=== PATIENT | female | born 1980 | race Caucasian/White ===

== ENCOUNTER 2022-03-02 08:54 | Outpatient (CLI) | payer OTHER, SELFPAY ==
[2022-03-02 13:47] LABS: Albumin* 4.5 g/dL (3.3-5.0)
[2022-03-02 13:48] LABS: Chloride* 103 mmol/L (96-114); Potassium* 4.4 mmol/L (3.6-5.1); Sodium* 138 mmol/L (135-149)
[2022-03-02 13:50] LABS: Bilirubin Total* 0.4 mg/dL (0.1-1.5); Carbon Dioxide* 29 mmol/L (20-32); Cholesterol* 188 mg/dL (90-199); Creatinine* 0.6 mg/dL (0.5-1.5); Estimated Glomerular Filt Rate 114 ml/min
[2022-03-02 13:51] LABS: Alanine Aminotransferase* 35 U/L (4-35); Alkaline Phosphatase* 58 U/L (40-150); Aspartate Amino Transferase* 29 U/L (12-35); Blood Urea Nitrogen* 15 mg/dL (5-24); Calcium* 9.3 mg/dL (8.4-10.6); Glucose* 106 mg/dL (60-115); HDL Cholesterol* 59 mg/dL (>=50); LDL Cholesterol Calculated 97 mg/dL (<100); Total Protein* 7.2 g/dL (6.0-8.3); Triglycerides* 161 mg/dL (40-149)
== END 2022-03-02 08:55 | disposition home or self-care (01) ==
PROVIDERS: PCP Physician Assistant Medical; Visit Provider Physician Assistant Medical
DX: Z00.00 Encounter for general adult medical examination without abnormal findings (principal); F41.9 Anxiety disorder, unspecified; Z13.6 Encounter for screening for cardiovascular disorders; Z13.29 Encounter for screening for other suspected endocrine disorder; Z11.3 Encounter for screening for infections with a predominantly sexual mode of transmission
CPT/HCPCS: 80053; 80061; 84443; 87624; 88175

== ENCOUNTER 2023-11-10 08:51 | Outpatient (CLI) | payer OTHER, SELFPAY ==
--- OUTSIDE RECORDS SUMMARY | 2023-11-11 06:09 | XMS_ITS | Clinical Summary ---
Author Name Unknown Organization [facility] Address [address], [place] [address] Care Team Providers Care Evaporative Cooler Installer Name Role Phone Rolando Pike MD Primary Care Provider [phone] Source Comments You are receiving this document as you are listed as the primary care provider,follow-up provider, or the patient has been referred to you for consultation.This is in compliance with the Medicare and[facility] E[facility] Incentive [facility],which states Providers who transition their patient to another setting of careor provider of care or refers their patient to another provider of care shouldprovide summary care record for each transition of care or referral. [facility] Allergies Active Allergy Reactions Criticality Noted Date Comments Levofloxacin Anxiety High 09/22/2012 Medications Medication Sig Dispensed Refills Start Date End Date Status Apnugvbr-Zne-Aq-FA ( VITAMINS OR) Reported on 07/24/2016 Active sertraline (ZOLOFT) 50 MG tablet Take 50 mg by mouth daily. Active Vit-Fe Fumarate-FA ( VITAMIN OR) Active Active Problems Problem Noted Date Diagnosed Date Ingrowing nail 06/26/2011 Allergic rhinitis 03/09/2005 Overview: LW Onset: [id number] ; Rhinitis Allergic NOS Migraine 12/23/2002 Overview: Migraine Without Aura Resolved Problems Problem Noted Date Diagnosed Date Resolved Date Muscle tension headache 04/28/201304/18 Immunizations Name Administration Dates Next Due TDAP (ADACEL) 07/10/2008 Td 09/04/2002 Tdap 07/10/2008 Social History Tobacco Use Types Packs/Day Years Used Date Smoking Tobacco: Never Smokeless Tobacco: Never Alcohol Use Standard Drinks/Week Comments No 0 (1 standard drink = 0.6 oz pur e alcohol) Sex and Gender Information Value Date Recorded Sex Assigned at Not on file Gender Identity Not on file Sexual Orientation Not on file Last Filed Vital Signs Vital Sign Reading Time Taken Comments Blood Pressure 101/73 06/18/2017 6:48 PM IT ARCHITECTURE ANALYST Pulse 81 06/18/2017 6:48 PM IT ARCHITECTURE ANALYST Temperature 37 ??C (98.6 ??F) 06/18/2017 6:48 PM IT ARCHITECTURE ANALYST Respiratory Rate 18 06/18/2017 6:48 PM IT ARCHITECTURE ANALYST Oxygen Saturation 97% 06/18/2017 6:48 PM IT ARCHITECTURE ANALYST Inhaled Oxygen Concentration - - Weight 61.2 kg (135 lb) 06/18/2017 6:48 PM IT ARCHITECTURE ANALYST Height 162.6 cm (5' 4) 06/18/2017 6:48 PM IT ARCHITECTURE ANALYST Body Mass Index 23.17 06/18/2017 6:48 PM IT ARCHITECTURE ANALYST Plan of Treatment Health Maintenance Due Date Last Done Comments Hep C Screening (Preventive Services) 1979 HIV Screening (Preventive Services) 1995 Adult Preventive Visit 1997 HepB (1) 1998 Cervical Cancer Screening Due 07/11/2008 07/10/2008, 12/17/2006, 03/09/2005, Additional history exists DTaP/Tdap/Td (3 - Tdap) 07/10/2018 07/10/20, 07/10/2008, 09/04/2002 COVID-19 Vaccine (2022-24 season) 2023 Influenza (#1) 2023 Zoster/Shingles (1 of 2) 2029 HPV Vaccine Aged Out No longer eligi ble based on patient's age to complete this topic HepA Aged Out No longer eligi ble based on patient's age to complete this topic Hib Aged Out No longer eligi ble based on patient's age to complete this topic IPV (Polio) Aged Out No longer eligi ble based on patient's age to complete this topic MCV4 Aged Out No longer eligi ble based on patient's age to complete this topic Pneumococcal Aged Out No longer eligi ble based on patient's age to complete this topic Procedures Procedure Name Priority Date/Time Associated Diagnosis Comments ANATOMICAL PATH LIQUID BASED Routine 07/10/2008 5:44 AM IT ARCHITECTURE ANALYST from Last 3 Months or Most Recently Relevant to Health Maintenance Results * Pap Smear (07/10/2008 5:44 AM IT ARCHITECTURE ANALYST) PAP Smear Liquid Based SEE TEXT No normal range HP CONVERSION Comment: Patient: MANISHA FRAZIER ? CERVICAL CYTOLOGY REPORT Pathology # ??[id number] ?Date Obtained: ? Date Received: CYTOLOGIC IMPRESSION: Negative for intraepithelial lesion or malignancy. Verified 07/17/08 by: ??KGM ?(electronic signature) ? ADDITIONAL DATA LMP: CLINICAL HIST LIQUID BASED PAP CERVICAL SPECIMEN ADEQUACY: ?? Satisfactory. ENDOCERVICAL CELLS: ??Present. 07/10/2008 5:44 AM IT ARCHITECTURE ANALYST Lucy Foote PA-C LAB_1 HP CONVERSION from Last 3 Months or Most Recently Relevant to Health Maintenance Care Teams Evaporative Cooler Installer Relationship Specialty [place] [address] [place] [address] PCP - General Internal Medicine 04/28/13
--- OUTSIDE RECORDS SUMMARY | 2023-11-11 06:09 | XMS_ITS | Referral Summary ---
Author Name Unknown Organization [facility] Address [address] [place] [address]. [place] [address] Care Team Providers Care Hotel Room Attendant Name Role Phone Consultants, Gian Peoplesoft Analyst Primary Care Provi nick Allergies No known active allergies Medications Medication Sig Dispensed Refills Start Date End Date Status sertraline (ZOLOFT) 50 MG tablet Take 50 mg by mouth Active Social History Tobacco Use Types Packs/Day Years Used Date Smoking Tobacco: Never Assessed Adolescent Education Answer Date Record ed Getting School Help Needed Not on file 04/25 Sex and Gender Information Value Date Recorded Sex Assigned at Not on file Gender Identity Not on file Sexual Orientation Not on file Plan of Treatment Not on file Procedures Procedure Name Priority Date/Time Associated Diagnosis Comments MA SCREENING DIGITAL BILATERAL Routine 07/15/2023 2:02 PM HYDROELECTRIC PLANT OPERATOR Visit for screening mammogram from Last 3 Months or Most Recently Relevant to Health Maintenance Results * MA Screening Digital Bilateral (07/15/2023 2:02 PM HYDROELECTRIC PLANT OPERATOR) Anatomical Region Laterality Modality Breast Bilateral Mammography Impressions 07/16/2023 8:09 AM HYDROELECTRIC PLANT OPERATOR IMPRESSION: ACR BI-RADS Category 1: Negative RECOMMENDED FOLLOW-UP: Annual routine screening mammogram The results and recommendations of this examination will be communicated to the patient. Jatin Degroot MD Narrative 07/16/2023 8:09 AM HYDROELECTRIC PLANT OPERATOR BILATERAL FULL FIELD DIGITAL SCREENING MAMMOGRAM Performed on: 07/15/23 Compared to: 02/05/2022 and 06/07/2020 Technique: This study was evaluated with the assistance of Computer-Aided Detection. Findings: The breasts are heterogeneously dense, which may obscure small masses. ??There is no radiographic evidence of malignancy. Nancy Nichols PA-C IMG MAMMOGRAPHY ORDERABLES from Last 3 Months or Most Recently Relevant to Health Maintenance Care Teams Hotel Room Attendant Relationship Specialty Start Date End Date ConsultantsGian Peoplesoft Analyst [address] [place] [address], [address] [place] [address] PCP - General 06/06/20
--- OUTSIDE RECORDS SUMMARY | 2023-11-11 06:09 | XMS_ITS | Clinical Summary ---
Author Name Unknown Organization [facility] Address [address] [place] [address]. [place] [address] Care Team Providers Care Passenger Service Representative Name Role Phone Consultants, Gian Supervisor Erection Shop Primary Care Provi nick Allergies No known active allergies Medications Medication Sig Dispensed Refills Start Date End Date Status sertraline (ZOLOFT) 50 MG tablet Take 50 mg by mouth Active Family History Medical History Relation Comments Colon Cancer Maternal Grandfather Breast Cancer Maternal Grandmother Relation Status Comments Maternal Grandfather Maternal Grandmother Social History Tobacco Use Types Packs/Day Years Used Date Smoking Tobacco: Never Assessed Adolescent Education Answer Date Record ed Getting School Help Needed Not on file 04/25 Sex and Gender Information Value Date Recorded Sex Assigned at Not on file Gender Identity Not on file Sexual Orientation Not on file Plan of Treatment Health Maintenance Due Date Last Done Comments ADVANCE CARE PLANNING 1979 ANNUAL REVIEW OF HM ORDERS 1979 GLUCOSE 1979 HIV SCREENING 1994 HEPATITIS C SCREENING 1997 HEPATITIS B IMMUNIZATION (1 of 3 - 19+ 3-dose series) 1998 PAP 01/02/2000 LIPID 2019 YEARLY PREVENTIVE VISIT 03/21/2021 03/21/2020 COVID-19 Vaccine (24 season) 2023 12/11/2020, 11/13/2020 PHQ-2 (once per calendar year) 2023 MAMMO SCREENING 07/15/2025 07/15/2023, 01/17, 01/22/2021, Additional history exists DTAP/TDAP/TD IMMUNIZATION (5 - Td or Tdap) 03/02/2032 03/02/2022, 02/17/2011, 07/10/2008, Additional history exists INFLUENZA VACCINE Completed 04/15/2023, , 04/04/2020, Additional history exists HPV IMMUNIZATION Aged Out No longer e ligible based on patient's age to complete this topic IPV IMMUNIZATION Aged Out No longer e ligible based on patient's age to complete this topic MENINGITIS IMMUNIZATION Aged Out No l onger eligible based on patient's age to complete this topic Pneumococcal Vaccine: Pediatrics (0 to 5 Years) and At-Risk Patients (6 to 64 Years) Aged Out No longer eligible based on patient's age to complete this topic RSV MONOCLONAL ANTIBODY Aged Out No l onger eligible based on patient's age to complete this topic Procedures Procedure Name Priority Date/Time Associated Diagnosis Comments MA SCREENING DIGITAL BILATERAL Routine 07/15/2023 2:02 PM CASHIER AND WAITER/WAITRESS Visit for screening mammogram from Last 3 Months or Most Recently Relevant to Health Maintenance Results * MA Screening Digital Bilateral (07/15/2023 2:02 PM CASHIER AND WAITER/WAITRESS) Anatomical Region Laterality Modality Breast Bilateral Mammography Impressions 07/16/2023 8:09 AM CASHIER AND WAITER/WAITRESS IMPRESSION: ACR BI-RADS Category 1: Negative RECOMMENDED FOLLOW-UP: Annual routine screening mammogram The results and recommendations of this examination will be communicated to the patient. Jatin Degroot MD Narrative 07/16/2023 8:09 AM CASHIER AND WAITER/WAITRESS BILATERAL FULL FIELD DIGITAL SCREENING MAMMOGRAM Performed on: 07/15/23 Compared to: 02/05/2022 and 06/07/2020 Technique: This study was evaluated with the assistance of Computer-Aided Detection. Findings: The breasts are heterogeneously dense, which may obscure small masses. ??There is no radiographic evidence of malignancy. Nancy Nichols PA-C IMHao MAMMOGRAPHY ORDERABLES from Last 3 Months or Most Recently Relevant to Health Maintenance Care Teams Passenger Service Representative Relationship Specialty Start Date End Date ConsultantsGian Supervisor Erection Shop [facility], [address] [place] [address] PCP - General 06/06/20
== END 2023-11-10 08:52 | disposition home or self-care (01) ==
LOC: NFLDREF 11-11 06:07
PROVIDERS: PCP Physician Assistant Medical; Referring Provider Physician Assistant Medical; Visit Provider Physician Assistant Medical
DX: Z13.220 Encounter for screening for lipoid disorders (principal); Z13.228 Encounter for screening for other metabolic disorders; Z13.29 Encounter for screening for other suspected endocrine disorder; Z11.9 Encounter for screening for infectious and parasitic diseases, unspecified
CPT/HCPCS: 80053; 80061; 84443; 86703; 86803

== ENCOUNTER 2023-11-15 08:49 | Outpatient (RCR) | payer OTHER, SELFPAY ==
--- NOTE | 2023-11-15 10:43 | PT.OPE ---
PT [facility] Outpatient Eval PT [facility] Outpatient Eval Start: 11/15/23 10:39 Freq: Status: Active Protocol: Document 11/15/23 10:39 YOVANNYJuan Diego (Rec: 11/15/23 10:41 YOVANNYJuan Diego [id number]) E-signed By Aj Doherty DPT, MS Physical Therapy Outpatient Evaluation Insurance Information Insurance Name Other; See Comments Insurance Information/Comments [facility] Medical Diagnosis Radiculopathy, site unspecified Treating Diagnosis B LS pain with R-sided LS radicular sxs, decreased B LS and LE flexibility, and B LE and core weakness Subjective Subjective Pt is a 43 y.o female who presents to PT with c/o acute onset of R-sided LS radicular sxs of insidious onset ~2 weeks ago. Believes a deadlifting workout or helping move a refrigerator may have causes sxs with no specific injury. Initially experienced R-sided LS and glute soreness, but sxs have primarily been numbness and tingling along her lateral R LE extending down to her 5th toe. Sx intensity and frequency has improved significantly with prednisone use with stiffness and mild tingling upon waking being primary complaint. Does not like taking pills and plans on weaning herself off prednisone and will reach out to her MD. Performs LE strengthening exercises 2-4x per week and stretches her piriformis regularly. Describes high levels of anxiety with chronic neck and upper back stiffness and pain. Hopes to learn how to resolve sxs and prevent future recurrences. Denies other significant PMH. AGGR factors: extended standing and walking , carrying heavy objects. ALLEV factors: heat, rest, prednisone, stretching. 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 Preferred Name Manisha Precautions Therapy Limitations/Systems Review Not Limited Objective Functional Test Performed & Score Modified OSWESTRY: 28% Assessment Assessment/Impression Pt displays LS flex directional preference of movement with signs and symptoms consistent with R- sided LS radiculopathy. R piriforomis tightness combined with R LE weakness appears to have contributed to sxs. Instructed pt in proper lifting mechanics and stressed the importance of avoiding lifting heavy objects as she continues to recover. Good response to combination of stretching, and supine and standing strengthening exercises with decreased tightness and radicular sxs following today?s session. She will benefit greatly from continued skilled therapy to address these limitations. Primary Functional Limitations Extended standing and walking, carrying heavy objects Plan of Care Rehabilitation Potential Excellent Physical Therapy Goals Short-term goals to be completed in 4 weeks: 1. Pt will report >50% improvement in radicular sxs upon waking for >3 consecutive days. 2. Pt will report improved tolerance to standing and walking >5 min with no elevation in R-sided LS radicular sxs to perform work duties. Long-term goals to be completed in 10 weeks: 1. Pt will be independent and compliant with HEP 2. Pt will display improved R hip flex, ABD and ext, and abdominal strength of >/= 4+/5 to improve tolerance to rotor blade installer and lifting activities. 3. Pt will be able to walk for >14 minutes with no elevation in R-sided radciular sxs or LS pain to improve cardiovascular health. 4. Pt will report >50% improvement in modified OSWESTRY to increase tolerance to functional daily activities. Coordination/Communication With Referral Source Treatment Plan/Direct Interventions Joint Mobilization,Manual Therapy,Therapeutic Exercises, Traction (Mechanical) Frequency/Duration 1x per week for at least 6-10 visits, decreasing frequency as able. Patient Will Be Discharged From Therapy Completion of LTG(s),Skills Plateau,Independent w/HEP, Independently Progressing Evaluation Billing Untimed Code Treatment Minutes 21 Complexity Moderate Certification Information Physician Comment/Change : Physician NPI Number #
== END 2024-03-14 23:59 | disposition home or self-care (01) ==
PROVIDERS: PCP Physician Assistant Medical; Visit Provider Emergency Medicine
DX: M54.10 Radiculopathy, site unspecified (principal); R29.898 Other symptoms and signs involving the musculoskeletal system; Z51.89 Encounter for other specified aftercare
CPT/HCPCS: 97110; 97162

== ENCOUNTER 2024-05-11 11:48 | Outpatient (CLI) | payer OTHER, SELFPAY ==
--- OUTSIDE RECORDS SUMMARY | 2024-05-11 11:50 | XMS_ITS | Referral Summary ---
Author Organization [facility] Address [address] [place] [address]. [place] [address] Care Team Providers Care Schedule Manager Name Role Phone Consultants, Gian Gripper Attacher Primary Care Provi nick Allergies No known active allergies Medications sertraline (ZOLOFT) 50 MG tablet Take 50 mg by mouth Active Social History Tobacco Use Types Packs/Day Years Used Date Smoking Tobacco: Never Assessed Adolescent Education Answer Date Record ed Getting School Help Needed Not on file 04/25 Comments Unknown Sex and Gender Information Value Date Recorded Sex Assigned at Not on file Legal Sex Female 3:09 AM IMPREGNATING MACHINE OPERATOR Gender Identity Not on file Sexual Orientation Not on file Plan of Treatment Not on file Procedures Procedure Name Priority Date/Time Associated Diagnosis Comments MA SCREENING DIGITAL BILATERAL Routine 07/15/2023 2:02 PM IMPREGNATING MACHINE OPERATOR Visit for screening mammogram from Last 3 Months or Most Recently Relevant to Health Maintenance Results * MA Screening Digital Bilateral (07/15/2023 2:02 PM IMPREGNATING MACHINE OPERATOR) Anatomical Region Laterality Modality Breast Bilateral Mammography Impressions 07/16/2023 8:09 AM IMPREGNATING MACHINE OPERATOR IMPRESSION: ACR BI-RADS Category 1: Negative RECOMMENDED FOLLOW-UP: Annual routine screening mammogram The results and recommendations of this examination will be communicated to the patient. Jatin Degroot MD Narrative 07/16/2023 8:09 AM IMPREGNATING MACHINE OPERATOR BILATERAL FULL FIELD DIGITAL SCREENING MAMMOGRAM Performed on: 07/15/23 Compared to: 02/05/2022 and 06/07/2020 Technique: This study was evaluated with the assistance of Computer-Aided Detection. Findings: The breasts are heterogeneously dense, which may obscure small masses. ??There is no radiographic evidence of malignancy. Nancy Nichols PA-C IMG MAMMOGRAPHY ORDERAB LES Final Result from Last 3 Months or Most Recently Relevant to Health Maintenance Insurance [facility] Care Teams Schedule Manager Relationship Specialty Start Date End Date Consultants, Gian Gripper Attacher [address] [place] [address], [address] [place] [address] PCP - General 06/06/20
--- OUTSIDE RECORDS SUMMARY | 2024-05-11 11:50 | XMS_ITS | Clinical Summary ---
Author Organization [facility] Address [address] [place] [address]. [place] [address] Care Team Providers Care Prints And Drawings Curator Name Role Phone Consultants, Gian Body Die Maker Primary Care Provi nick Allergies No known [...] on file Legal Sex Female 3:09 AM TUG HAND Gender Identity Not on file Sexual Orientation Not on file Plan of Treatment Health Maintenance Due Date Last Done Comments ADVANCE CARE PLANNING 1979 ANNUAL REVIEW OF HM ORDERS 1979 CT COLONOGRAPHY 1979 FIT 1979 FLEX SIG 1979 GLUCOSE 1979 sDNA (Cologuard) 1979 COLONOSCOPY 1989 COLORECTAL CANCER SCREENING 1989 HIV SCREENING 1994 HEPATITIS C SCREENING 1997 HEPATITIS B IMMUNIZATION (1 of 3 - 19+ 3-dose series) 1998 PAP 01/02/2000 LIPID 2019 YEARLY PREVENTIVE VISIT 03/21/2021 03/21/2020 PHQ-2 (once per calendar year) 2023 COVID-19 Vaccine ( season) 2024 12/11/2020, 11/13/2020 INFLUENZA VACCINE (#1) 2024 3, 04/30/2022, 04/04/2020, Additional history exists MAMMO SCREENING 07/15/2025 07/15/2023, 01/17, 01/22/2021, Additional history exists DTAP/TDAP/TD IMMUNIZATION (5 - Td or Tdap) 03/02/2032 03/02/2022, 02/17/2011, 07/10/2008, Additional history exists RSV VACCINE (1 - 1-dose 75+ series) 2054 HPV IMMUNIZATION Aged Out No longer e [...] SCREENING DIGITAL BILATERAL Routine 07/15/2023 2:02 PM TUG HAND Visit for screening mammogram from Last 3 Months or Most Recently Relevant to Health Maintenance Results * MA Screening Digital Bilateral (07/15/2023 2:02 PM TUG HAND) Anatomical Region Laterality Modality Breast Bilateral Mammography Impressions 07/16/2023 8:09 AM TUG HAND IMPRESSION: ACR BI-RADS Category 1: Negative RECOMMENDED FOLLOW-UP: Annual routine screening mammogram The results and recommendations of this examination will be communicated to the patient. Jatin Degroot MD Narrative 07/16/2023 8:09 AM TUG HAND BILATERAL FULL FIELD DIGITAL SCREENING MAMMOGRAM Performed on: 07/15/23 Compared to: 02/05/2022 and 06/07/2020 Technique: This study was evaluated with the assistance of Computer-Aided Detection. Findings: The breasts are heterogeneously dense, which may obscure small masses. ??There is no radiographic evidence of malignancy. us Nancy Nichols PA-C IMG MAMMOGRAPHY ORDERAB LES Final Result from Last 3 Months or Most Recently Relevant to Health Maintenance Insurance [facility] Care Teams Prints And Drawings Curator Relationship Specialty Start Date End Date ConsultantsGian Body Die Maker [facility] [address], [address] [place] [address] PCP - General 06/06/20
--- OUTSIDE RECORDS SUMMARY | 2024-05-11 11:50 | XMS_ITS | Clinical Summary ---
Author Organization [facility] Address [address] [place] [address] Care Team Providers Care Reverser Name Role Phone Rolando Pike MD Primary Care Provider [phone] Source Comments You are receiving this document as you are listed as the primary care provider,follow-up provider, or the patient has been referred to you for consultation.This is in compliance with the Medicare andMedicaid EHR Incentive Program,which states Providers who transition their patient to another setting of careor provider of care or refers their patient to another provider of care shouldprovide summary care record for each transition of care or referral. [facility] All[facility] Active Allergy Reactions Criticality Noted Date Comments Levofloxacin Anxiety High 09/22/2012 Medications Medication Sig Dispensed Refills Start Date End Date Status Fgmiuvqi-Efh-Ux-FA ( VITAMINS OR) Reported on 07/24/2016 Active sertraline (ZOLOFT) 50 MG tablet Take 50 mg by mouth daily. Active Vit-Fe Fumarate-FA ( VITAMIN OR) Active Active Problems Problem Noted Date Diagnosed Date Ingrowing nail 06/26/2011 Allergic rhinitis 03/09/2005 Overview (03/10/2017): LW Onset: [id number] ; Rhinitis Allergic NOS Migraine 12/23/2002 Overview (03/10/2017): Migraine Without Aura Resolved Problems Problem Noted [...] Comments Blood Pressure 101/73 06/18/2017 6:48 PM MEAT SLICER Pulse 81 06/18/2017 6:48 PM MEAT SLICER Temperature 37 ??C (98.6 ??F) 06/18/2017 6:48 PM MEAT SLICER Respiratory Rate 18 06/18/2017 6:48 PM MEAT SLICER Oxygen Saturation 97% 06/18/2017 6:48 PM MEAT SLICER Inhaled Oxygen Concentration - - Weight 61.2 kg (135 lb) 06/18/2017 6:48 PM MEAT SLICER Height 162.6 cm (5' 4) 06/18/2017 6:48 PM MEAT SLICER Body Mass Index 23.17 06/18/2017 6:48 PM MEAT SLICER Plan of Treatment Health Maintenance Due Date Last Done Comments Colon Cancer Screening Plan Due 1979 Hep C Screening (Preventive Services) 1979 Mammogram 1979 HIV Screening (Preventive Services) 1995 Adult Preventive Visit 1997 HepB (1) 1998 Cervical Cancer Screening Due 07/11/2008 07/10/2008, 12/17/2006, 03/09/2005, Additional history exists DTaP/Tdap/Td (3 - Tdap) 07/10/2018 07/10/20 08, 07/10/2008, 09/04/2002 Cholesterol 01/02/2024 03/09/2005, 07/21/1999 COVID-19 Vaccine (2023- season) 2024 Influenza (#1) 2024 Zoster/Shingles (1 of 2) 2029 HPV Vaccine [...] on patient's age to complete this topic Infant RSV Aged Out No longer eligi ble based on patient's age to complete this topic MCV4 Aged Out No longer eligi ble based on patient's age to complete this topic Pneumococcal Aged Out No longer eligi ble based on patient's age to complete this topic Procedures Procedure Name Priority Date/Time Associated Diagnosis Comments ANATOMICAL PATH LIQUID BASED Routine 07/10/2008 5:44 AM MEAT SLICER LIPID PANEL & DIRECT LDL (IF NEEDED) Routine 03/09/2005 9:27 AM CDT from Last 3 Months or Most Recently Relevant to Health Maintenance Results * Pap Smear (07/10/2008 5:44 AM MEAT SLICER) PAP Smear Liquid Based SEE TEXT No normal range HP CONVERSION Comment: Patient: MANISHA FRAZIER ? CERVICAL CYTOLOGY REPORT Pathology # ??[id number] ?Date Obtained: ? Date Received: CYTOLOGIC IMPRESSION: Negative for intraepithelial lesion or malignancy. Verified 07/17/08 by: ??KGM ?(electronic signature) ? ADDITIONAL DATA LMP: CLINICAL HIST LIQUID BASED PAP CERVICAL SPECIMEN ADEQUACY: ?? Satisfactory. ENDOCERVICAL CELLS: ??Present. 07/10/2008 5:44 AM MEAT SLICER Lucy Foote PA-C LAB_1 HP CONVERSION * (ABNORMAL) Lipid Panel and Direct LDL(If Needed) (03/09/2005 9:27 AM CDT) Cholesterol/HDL Ratio Screen 2.3 No normal range HP CONVERSION Cholesterol 151 <200 mg/dL HP CONVERSION HDL Cholesterol 65(H) 40 - 60 mg/dL HP CONVERSION Triglycerides 60 0 - 149 mg/dL HP CONVERSION LDL Calculated 74 0 - 130 mg/dL HP CONVERSION Comment: Desirable: <130 mg/dL (<100 if diabetes or coronary heart disease) 03/09/2005 9:27 AM CDT Lucy Foote PA-C LAB_1 HP CONVERSION from Last 3 Months or Most Recently Relevant to Health Maintenance Care Teams Reverser Relationship Specialty [place] [address] [place] [address] PCP - General Internal Medicine 04/28/13
== END 2024-05-11 11:49 | disposition home or self-care (01) ==
LOC: LKVREF 11:48
PROVIDERS: PCP Physician Assistant Medical; Visit Provider Physician Assistant Medical
DX: Z01.818 Encounter for other preprocedural examination (principal); Z97.5 Presence of (intrauterine) contraceptive device
CPT/HCPCS: 83001

== ENCOUNTER 2024-05-15 08:33 | Outpatient (CLI) | payer OTHER, SELFPAY ==
--- OUTSIDE RECORDS SUMMARY | 2024-05-15 08:37 | XMS_ITS | Referral Summary ---
Author Organization [facility] Address [address] [place] [address]. [place] [address] Care Team Providers Care Salesforce Consultant Name Role Phone Consultants, Gian Veterinary Surgery Technician Primary Care Provi nick Allergies No known [...] on file Legal Sex Female 3:09 AM COMPUTER PROGRAMMER Gender Identity Not on file Sexual Orientation Not on file Plan of Treatment Not on file Procedures Procedure Name Priority Date/Time Associated Diagnosis Comments MA SCREENING DIGITAL BILATERAL Routine 07/15/2023 2:02 PM COMPUTER PROGRAMMER Visit for screening mammogram from Last 3 Months or Most Recently Relevant to Health Maintenance Results * MA Screening Digital Bilateral (07/15/2023 2:02 PM COMPUTER PROGRAMMER) Anatomical Region Laterality Modality Breast Bilateral Mammography Impressions 07/16/2023 8:09 AM COMPUTER PROGRAMMER IMPRESSION: ACR BI-RADS Category 1: Negative RECOMMENDED FOLLOW-UP: Annual routine screening mammogram The results and recommendations of this examination will be communicated to the patient. Jatin Degroot MD Narrative 07/16/2023 8:09 AM COMPUTER PROGRAMMER BILATERAL FULL FIELD DIGITAL SCREENING MAMMOGRAM Performed [...] [facility] CHO[facility] Care Teams Salesforce Consultant Relationship Specialty Start Date End Date Consultants, Gian Veterinary Surgery Technician [address] [place] [address], [address] [place] [address] PCP - General 06/06/20
--- OUTSIDE RECORDS SUMMARY | 2024-05-15 08:37 | XMS_ITS | Clinical Summary ---
Author Organization [facility] Address [address] [place] [address] Care Team Providers Care Electronic Semiconductor Processor Name Role Phone Rolando Pike MD Primary Care Provider [phone] Source Comments You are receiving this document [...] for each transition of care or referral. [facility] Active Allergy Reactions Criticality Noted Date Comments Levofloxacin Anxiety High 09/22/2012 Medications Medication Sig Dispensed Refills Start Date End Date Status Lltuipal-Kpf-Lq-FA ( VITAMINS OR) Reported on 07/24/2016 Active sertraline (ZOLOFT) 50 MG tablet Take 50 mg by mouth daily. Active Vit-Fe Fumarate-FA ( VITAMIN OR) Active Active Problems Problem Noted Date Diagnosed Date Ingrowing nail 06/26/2011 Allergic rhinitis 03/09/2005 Overview (03/10/2017): LW Onset: [id number] ; Rhinitis Allergic NOS Migraine 12/23/2002 Overview [...] Comments Blood Pressure 101/73 06/18/2017 6:48 PM [facility] Pulse 81 06/18/2017 6:48 PM [facility] Temperature 37 ??C (98.6 ??F) 06/18/2017 6:48 PM [facility] Respiratory Rate 18 06/18/2017 6:48 PM [facility] Oxygen Saturation 97% 06/18/2017 6:48 PM [facility] Inhaled Oxygen Concentration - - Weight 61.2 kg (135 lb) 06/18/2017 6:48 PM [facility] Height 162.6 cm (5' 4) 06/18/2017 6:48 PM [facility] Body Mass Index 23.17 06/18/2017 6:48 PM [facility] Plan of Treatment Health Maintenance Due Date [...] PATH LIQUID BASED Routine 07/10/2008 5:44 AM [facility] LIPID PANEL & DIRECT LDL (IF NEEDED) Routine 03/09/2005 9:27 AM CDT from Last 3 Months or Most Recently Relevant to Health Maintenance Results * Pap Smear (07/10/2008 5:44 AM [facility]) PAP Smear Liquid Based SEE TEXT No normal range HP CONVERSION Comment: Patient: MANISHA FRAZIER ? CERVICAL CYTOLOGY REPORT Pathology # ??[id number] ?Date Obtained: ? Date Received: CYTOLOGIC IMPRESSION: Negative for intraepithelial lesion or malignancy. Verified 07/17/08 by: ??KGM ?(electronic signature) ? ADDITIONAL DATA LMP: CLINICAL HIST LIQUID BASED PAP CERVICAL SPECIMEN ADEQUACY: ?? Satisfactory. ENDOCERVICAL CELLS: ??Present. 07/10/2008 5:44 AM [facility] Lucy Foote PA-C LAB_1 HP CONVERSION * [...] Recently Relevant to Health Maintenance Care Teams Electronic Semiconductor Processor Relationship Specialty [place] [address] [place] [address] PCP - General Internal Medicine 04/28/13
--- OUTSIDE RECORDS SUMMARY | 2024-05-15 08:37 | XMS_ITS | Clinical Summary ---
Author Organization [facility] Address [address] [place] [address]. [place] [address] Care Team Providers Care Executive Director Of Marketing Name Role Phone Consultants, Gian Lard Refiner Primary Care Provi nick Allergies No known [...] on file Legal Sex Female 3:09 AM MARKETING PROPOSAL SPECIALIST Gender Identity Not on file Sexual Orientation [...] SCREENING DIGITAL BILATERAL Routine 07/15/2023 2:02 PM MARKETING PROPOSAL SPECIALIST Visit for screening mammogram from Last 3 Months or Most Recently Relevant to Health Maintenance Results * MA Screening Digital Bilateral (07/15/2023 2:02 PM MARKETING PROPOSAL SPECIALIST) Anatomical Region Laterality Modality Breast Bilateral Mammography Impressions 07/16/2023 8:09 AM MARKETING PROPOSAL SPECIALIST IMPRESSION: ACR BI-RADS Category 1: Negative RECOMMENDED FOLLOW-UP: Annual routine screening mammogram The results and recommendations of this examination will be communicated to the patient. Jatin Degroot MD Narrative 07/16/2023 8:09 AM MARKETING PROPOSAL SPECIALIST BILATERAL FULL FIELD DIGITAL SCREENING MAMMOGRAM Performed [...] Most Recently Relevant to Health Maintenance Insurance [facility] CHOICE [facility] CHO[facility] Care Teams Executive Director Of Marketing Relationship Specialty Start Date End Date ConsultantsGian Lard Refiner [facility] [address], [address] [place] [id number] PCP - General 06/06/20
--- NOTE | 2024-05-15 09:38 | W.ANESCHARGE ---
Anesthesia Charges Start Date/Time Anesthesia Start Date: 05/15/24 Anesthesia Start Time: 09:00 Stop Date/Time Anesthesia Stop Date: 05/15/24 Anesthesia Stop Time: 09:25
--- NOTE | 2024-05-15 09:47 | W.ANESCHARGE ---
Anesthesia Charges Start Date/Time Anesthesia Start Date: 05/15/24 Anesthesia Start Time: 09:00 Stop Date/Time Anesthesia Stop Date: 05/15/24 Anesthesia Stop Time: 09:25
== END 2024-05-15 08:34 | disposition home or self-care (01) ==
LOC: OP CLINIC 08:34
PROVIDERS: PCP Physician Assistant Medical; Visit Provider Internal Medicine
DX: Z12.11 Encounter for screening for malignant neoplasm of colon (principal)
CPT/HCPCS: 00812; 45378; J2704

== ENCOUNTER 2025-03-23 14:56 | Outpatient (CLI) | payer BC, SELFPAY ==
--- NOTE | 2025-03-23 15:00 | CRLHL7_ITS ---
For Patients: As a result of the Century Cures Act, medical imaging exams and procedure reports are released immediately into your electronic medical record. You may view this report before your referring provider. If you have questions, please contact your health care provider. INDICATION: BILATERAL SCREENING MAMMOGRAM, ASYMPTOMATIC 45 Y/O FEMALE COMPARISON: 07/15/2023, 02/05/2022, 06/07/2020 TECHNIQUE: Digital mammogram in CC and MLO projections including computer-aided detection (CAD) and tomosynthesis. BREAST COMPOSITION: The breasts are heterogeneously dense, which may obscure small masses. FINDINGS: No suspicious findings. ASSESSMENT: BI-RADS 2 Benign RECOMMENDATION: Annual screening mammogram. A lay language report of this examination will be provided to the patient. Dictated by: Will Cesar MD @ 03/26/2025 08:32:05 (Electronically Signed)
== END 2025-03-23 14:57 | disposition home or self-care (01) ==
LOC: MAMMO 14:56
PROVIDERS: PCP Physician Assistant Medical; Visit Provider Physician Assistant Medical
DX: Z12.31 Encounter for screening mammogram for malignant neoplasm of breast (principal); R92.333 Mammographic heterogeneous density, bilateral breasts
CPT/HCPCS: 77063; 77067

== ENCOUNTER 2025-06-25 11:24 | Outpatient (CLI) | payer BC, SELFPAY ==
[2025-06-29 09:23] LABS: HPV Source Cervix
[2025-07-03 14:47] LABS: Pap Test Screened Manually Done
== END 2025-06-25 11:25 | disposition home or self-care (01) ==
PROVIDERS: PCP Physician Assistant Medical; Visit Provider Physician Assistant
DX: Z12.4 Encounter for screening for malignant neoplasm of cervix (principal)
CPT/HCPCS: 87624; 87625; 88141; 88142; 88175